=== PATIENT | female | born 1985 | race African-American/Black ===

== ENCOUNTER 2021-04-14 18:29 | Observation (INO) | payer MEDICAID ==
[~2021-04-14] VITALS: Ht 167.6 cm; Wt 76.0 kg
[2021-04-14] MEDS ORDERED: TETANUS, DIPHTHERIA, PERTUSSIS VAC/PF 0.5ML (>7YR OLD) IM ONE (19:00)
[2021-04-14] MEDS ORDERED: ACETAMINOPHEN 325MG TABLET PO ONE (19:00)
[2021-04-14 19:42] VITALS: BP 129/73
[2021-04-14] MEDS ORDERED: LACTATED RINGERS 1,000 ML IV SCH (21:45)
[2021-04-14] MEDS ORDERED: PREN-118 MT (22:14)
== END 2021-04-14 23:15 | disposition home or self-care (01) ==
LOC: ER 18:29 → 8 EST LDRP 20:21
PROVIDERS: ADMIT Obstetrics & Gynecology; ATTEND Obstetrics & Gynecology
DX: O9A.313 Physical abuse complicating pregnancy, third trimester (principal); S01.81XA Laceration without foreign body of other part of head, initial encounter; Z23 Encounter for immunization; Y04.0XXA Assault by unarmed brawl or fight, initial encounter; Y93.89 Activity, other specified; Y92.89 Other specified places as the place of occurrence of the external cause
CPT/HCPCS: 12013; 76805; 76818; 90471; 90715; 96360; 96361; 99284; G0378; 99281